=== PATIENT | female | born 1975 | race Caucasian/White ===

== ENCOUNTER 2021-05-03 17:25 | Emergency (ER) | payer OTHER ==
[2021-05-03 18:03] VITALS: BP 126/78; PULSE 63; TEMP 97.8; BMI 21.6
[2021-05-03] MEDS ORDERED: IBUPROFEN 600 MG TABLET (FP) PO ONE ×2 (18:29→18:40)
[2021-05-03] MEDS ORDERED: LIDOCAINE 5% TOPICAL PATCH TP ONE (18:29)
[2021-05-03] MEDS ORDERED: LIDOCAINE 5% TOPICAL PATCH ONE (18:40)
[2021-05-03] MEDS ORDERED: LIDOCAINE PATCH REMOVAL MC SCH (22:00)
== END 2021-05-03 22:01 | disposition home or self-care (01) ==
LOC: FER 17:25
DX: M54.2 Cervicalgia (principal)
CPT/HCPCS: 99283-25

== ENCOUNTER 2021-05-09 21:18 | Emergency (ER) | payer OTHER ==
[2021-05-09 21:28] VITALS: BP 122/85; PULSE 82; BMI 21.6
[2021-05-09] MEDS ORDERED: MECLIZINE HCL 25 MG TABLET (FP) PO ONE (21:39)
[2021-05-09] MEDS ORDERED: ONDANSETRON *ODT* 4 MG TABLET SL ONE (21:40)
[2021-05-09] MEDS ORDERED: CYCLOBENZAPRINE HCL 5 MG TABLET PO STA (21:40)
[2021-05-09] MEDS ORDERED: MECLIZINE HCL 25 MG TABLET (FP) ONE (21:44)
[2021-05-09] MEDS ORDERED: CYCLOBENZAPRINE HCL 10 MG TABLET (FP) ONE (21:45)
[2021-05-09] MEDS ORDERED: ONDANSETRON *ODT* 4 MG TABLET ONE (21:45)
== END 2021-05-09 22:00 | disposition home or self-care (01) ==
LOC: FER 21:18 → SUPCPDRO 21:18 → FER 22:00
DX: R42 Dizziness and giddiness (principal); M54.2 Cervicalgia; F07.81 Postconcussional syndrome
CPT/HCPCS: 99283-25; Q0162

== ENCOUNTER 2021-09-16 19:29 | Emergency (ER) | payer OTHER ==
[2021-09-16] MEDS ORDERED: KETOROLAC TROMETHAMINE 30 MG/1 ML VIAL IM ONE ×2 (19:37→21:32)
[2021-09-16] MEDS ORDERED: KETOROLAC TROMETHAMINE 30 MG/1 ML VIAL ONE ×2 (19:37→21:33)
[2021-09-16] MEDS ORDERED: ACETAMINOPHEN 500 MG TABLET (FP) PO ONE (19:40)
[2021-09-16] MEDS ORDERED: ACETAMINOPHEN 500 MG TABLET (FP) ONE (19:41)
[2021-09-16 19:51] VITALS: BP 117/77; PULSE 76; TEMP 97.7; BMI 20.5
== END 2021-09-16 22:46 | disposition home or self-care (01) ==
LOC: FER 19:29
PROC: 3E023GC Introduction of Other Therapeutic Substance into Muscle, Percutaneous Approach (ICD-10-PCS; principal; 2021-09-16)
DX: F07.81 Postconcussional syndrome (principal); G44.309 Post-traumatic headache, unspecified, not intractable; T76.11XA Adult physical abuse, suspected, initial encounter
CPT/HCPCS: 70450-TC; 72070-TC-FY; 96372; 99284-25

== ENCOUNTER 2021-09-27 10:54 | Emergency (ER) | payer OTHER ==
[2021-09-27 11:04] VITALS: BP 121/78; PULSE 81; TEMP 97.8; BMI 20.5
[2021-09-27] MEDS ORDERED: IBUPROFEN 400 MG TABLET (FP) PO ONE ×2 (12:11→12:20)
[2021-09-27] MEDS ORDERED: ACETAMINOPHEN 325 MG TABLET (FP) PO ONE (12:11)
[2021-09-27] MEDS ORDERED: ACETAMINOPHEN 325 MG TABLET (FP) ONE (12:20)
== END 2021-09-27 12:37 | disposition home or self-care (01) ==
LOC: FER 10:54
DX: N94.6 Dysmenorrhea, unspecified (principal)
CPT/HCPCS: 99283-25

== ENCOUNTER 2021-10-05 11:12 | Emergency (ER) | payer OTHER ==
[2021-10-05] MEDS ORDERED: CYCLOBENZAPRINE HCL 10 MG TABLET (FP) PO ONE (11:19)
[2021-10-05 11:20] VITALS: BP 121/78; PULSE 67; TEMP 97.6; BMI 20.5
[2021-10-05] MEDS ORDERED: CYCLOBENZAPRINE HCL 5 MG TABLET ONE (11:22)
== END 2021-10-05 11:46 | disposition home or self-care (01) ==
LOC: FER 11:12
DX: R23.3 Spontaneous ecchymoses (principal)
CPT/HCPCS: 99283-25

== ENCOUNTER 2022-02-24 00:09 | Emergency (ER) | payer OTHER ==
[2022-02-24] MEDS ORDERED: ACETAMINOPHEN 500 MG TABLET (FP) ONE (00:15)
[2022-02-24] MEDS ORDERED: ACETAMINOPHEN 500 MG TABLET (FP) PO ONE (00:15)
[2022-02-24 00:19] VITALS: BP 109/74; PULSE 72; RESP 17; TEMP 97.6; BMI 20.5
[2022-02-24] MEDS ORDERED: MAGNESIUM CITRATE 300 ML BOTTLE PO ONE (00:44)
[2022-02-24] MEDS ORDERED: METHOCARBAMOL 500 MG TABLET PO ONE (00:47)
== END 2022-02-24 00:35 | disposition home or self-care (01) ==
LOC: FER 00:09
DX: R51.9 Headache, unspecified (principal); M54.2 Cervicalgia; M54.6 Pain in thoracic spine
CPT/HCPCS: 99283-25

== ENCOUNTER 2022-03-02 20:30 | Emergency (ER) | payer OTHER ==
[2022-03-02 20:40] VITALS: BP 112/69; PULSE 83; RESP 18; TEMP 97.8; BMI 20.5
[2022-03-02] MEDS ORDERED: MECLIZINE HCL 25 MG TABLET (FP) PO ONE (20:40)
[2022-03-02] MEDS ORDERED: SODIUM CHLORIDE 0.9% 500 ML INFUS.BAG IV ONE (20:40)
[2022-03-02] MEDS ORDERED: MECLIZINE HCL 25 MG TABLET (FP) ONE (21:28)
[2022-03-02 21:39] LABS: HEMATOCRIT 36.6 % (32.4-45.2); HEMOGLOBIN 12.4 G/dL (10.7-15.3); MCH 30.3 pg (25.7-33.7); MCHC 33.7 g/dl (32.0-36.0); MEAN CELL VOLUME 89.7 fl (80-96); MEAN PLT VOLUME 7.6 fl (7.5-11.1); RBC 4.08 10^6/uL (3.60-5.2); RDW 14.6 % (11.6-15.6); WHITE BLOOD COUNT 6.7 10^3/uL (4.0-10.8)
[2022-03-02 21:50] LABS: PLATELET ESTIMATE ADEQUATE
[2022-03-02 21:54] LABS: ALBUMIN 3.7 g/dl (3.4-5.0); BILIRUBIN,TOTAL 0.3 mg/dl (0.2-1); CALCIUM 8.8 mg/dl (8.5-10); CREATININE 0.7 mg/dl (0.55-1.3)
== END 2022-03-02 23:30 | disposition home or self-care (01) ==
LOC: FER 20:30
DX: R00.2 Palpitations (principal)
CPT/HCPCS: 36415; 71046-TC-FY; 80053; 84484; 85027; 93005; 99285-25

== ENCOUNTER 2022-03-09 20:55 | Emergency (ER) | payer OTHER ==
[2022-03-09 21:15] VITALS: BP 118/68; PULSE 70; RESP 16; TEMP 98.4; BMI 22.3
[2022-03-09] MEDS ORDERED: ACETAMINOPHEN 500 MG TABLET (FP) PO ONE (21:30)
[2022-03-09] MEDS ORDERED: ACETAMINOPHEN 500 MG TABLET (FP) ONE (21:32)
== END 2022-03-09 23:00 | disposition home or self-care (01) ==
LOC: FER 20:55
DX: M54.2 Cervicalgia (principal)
CPT/HCPCS: 99283-25

== ENCOUNTER 2022-03-30 22:20 | Emergency (ER) | payer OTHER ==
[2022-03-30] MEDS ORDERED: ACETAMINOPHEN 500 MG TABLET (FP) PO ONE (22:44)
[2022-03-30 23:16] VITALS: BP 125/70; PULSE 78; RESP 18; TEMP 98; BMI 24.4
== END 2022-03-30 23:37 | disposition home or self-care (01) ==
LOC: FER 22:20
DX: S29.012A Strain of muscle and tendon of back wall of thorax, initial encounter (principal); X50.0XXA Overexertion from strenuous movement or load, initial encounter
CPT/HCPCS: 99283-25

== ENCOUNTER 2022-04-08 21:06 | Emergency (ER) | payer OTHER ==
[2022-04-08] MEDS ORDERED: ACETAMINOPHEN 500 MG TABLET (FP) PO ONE (21:30)
[2022-04-08] MEDS ORDERED: ACETAMINOPHEN 325 MG TABLET (FP) ONE (21:31)
[2022-04-08 21:52] VITALS: BP 121/84; PULSE 76; RESP 18; TEMP 97.8; BMI 23.3
== END 2022-04-08 23:00 | disposition home or self-care (01) ==
LOC: FER 21:06
DX: M54.2 Cervicalgia (principal); M54.50 Low back pain, unspecified
CPT/HCPCS: 99283-25

== ENCOUNTER 2022-11-17 01:30 | Emergency (ER) | payer OTHER ==
[2022-11-17 01:50] VITALS: BP 114/82; BMI 49.1
[2022-11-17] MEDS ORDERED: CYCLOBENZAPRINE HCL 5 MG TABLET PO STA (02:01)
[2022-11-17] MEDS ORDERED: ACETAMINOPHEN 500 MG TABLET (FP) PO ONE (02:02)
[2022-11-17] MEDS ORDERED: CYCLOBENZAPRINE HCL 5 MG TABLET ONE (02:11)
[2022-11-17] MEDS ORDERED: ACETAMINOPHEN 500 MG TABLET (FP) ONE (02:11)
== END 2022-11-17 02:20 | disposition home or self-care (01) ==
LOC: FER 01:30
DX: M54.2 Cervicalgia (principal); M54.9 Dorsalgia, unspecified; M25.519 Pain in unspecified shoulder
CPT/HCPCS: 99283-25

== ENCOUNTER 2022-11-18 03:40 | Emergency (ER) | payer OTHER ==
[2022-11-18 03:50] VITALS: BP 119/77; PULSE 80; RESP 16; TEMP 97.8; BMI 22.3
[2022-11-18] MEDS ORDERED: ACETAMINOPHEN 500 MG TABLET (FP) PO ONE (04:07)
[2022-11-18] MEDS ORDERED: ACETAMINOPHEN 500 MG TABLET (FP) ONE (04:08)
== END 2022-11-18 04:19 | disposition home or self-care (01) ==
LOC: FER 03:40
DX: M54.50 Low back pain, unspecified (principal); M25.562 Pain in left knee; M54.2 Cervicalgia; S80.212A Abrasion, left knee, initial encounter; Y04.8XXA Assault by other bodily force, initial encounter; Y92.480 Sidewalk as the place of occurrence of the external cause
CPT/HCPCS: 99282-25

== ENCOUNTER 2022-11-18 21:52 | Emergency (ER) | payer OTHER ==
[2022-11-18] MEDS ORDERED: HYDROmorphone HCl 2 MG/ML VIAL IVPUSH ONE (22:03)
[2022-11-18] MEDS ORDERED: CYCLOBENZAPRINE HCL 5 MG TABLET PO STA (22:26)
[2022-11-18 22:27] VITALS: BP 118/81; PULSE 88; RESP 18; TEMP 97.9; BMI 22.3
[2022-11-18] MEDS ORDERED: ACETAMINOPHEN 500 MG TABLET (FP) PO ONE (22:27)
[2022-11-18] MEDS ORDERED: CYCLOBENZAPRINE HCL 5 MG TABLET ONE (22:29)
[2022-11-18] MEDS ORDERED: ACETAMINOPHEN 500 MG TABLET (FP) ONE (22:29)
== END 2022-11-19 00:02 | disposition home or self-care (01) ==
LOC: FER 21:52
DX: M54.9 Dorsalgia, unspecified (principal); M54.2 Cervicalgia; G89.29 Other chronic pain
CPT/HCPCS: 99283-25

== ENCOUNTER 2022-11-20 01:10 | Emergency (ER) | payer OTHER ==
[2022-11-20 01:16] VITALS: BP 119/74; PULSE 88; RESP 16; TEMP 98.5; BMI 19.3
== END 2022-11-20 01:32 | disposition home or self-care (01) ==
LOC: FER 01:10
DX: M54.50 Low back pain, unspecified (principal); M54.2 Cervicalgia; G89.29 Other chronic pain
CPT/HCPCS: 99282-25

== ENCOUNTER 2022-11-20 22:18 | Emergency (ER) | payer OTHER ==
[2022-11-20 22:28] VITALS: BP 118/63; PULSE 102; RESP 18; BMI 22.3
[2022-11-20] MEDS ORDERED: ACETAMINOPHEN 500 MG TABLET (FP) PO ONE (22:59)
[2022-11-20] MEDS ORDERED: CYCLOBENZAPRINE HCL 10 MG TABLET (FP) PO ONE (22:59)
[2022-11-20] MEDS ORDERED: CYCLOBENZAPRINE HCL 5 MG TABLET ONE (23:13)
[2022-11-20] MEDS ORDERED: ACETAMINOPHEN 500 MG TABLET (FP) ONE (23:15)
[2022-11-20 23:33] VITALS: TEMP 98.1
== END 2022-11-20 23:36 | disposition home or self-care (01) ==
LOC: JER 22:18
DX: M54.9 Dorsalgia, unspecified (principal); M54.2 Cervicalgia; M25.562 Pain in left knee; G89.29 Other chronic pain; S80.212A Abrasion, left knee, initial encounter; X58.XXXA Exposure to other specified factors, initial encounter
CPT/HCPCS: 99283-25

== ENCOUNTER 2022-11-21 03:57 | Emergency (ER) | payer OTHER ==
[2022-11-21 04:09] VITALS: BP 133/62; PULSE 79; RESP 18; TEMP 97.6; BMI 22.3
[2022-11-21] MEDS ORDERED: LIDOCAINE 5% TOPICAL PATCH TP ONE (04:29)
[2022-11-21] MEDS ORDERED: LIDOCAINE 5% TOPICAL PATCH ONE (04:31)
[2022-11-21] MEDS ORDERED: LIDOCAINE PATCH REMOVAL MC ONE (17:00)
== END 2022-11-21 05:10 | disposition home or self-care (01) ==
LOC: JER 03:57
DX: M54.2 Cervicalgia (principal); N93.9 Abnormal uterine and vaginal bleeding, unspecified; M54.9 Dorsalgia, unspecified; N92.0 Excessive and frequent menstruation with regular cycle
CPT/HCPCS: 99283-25

== ENCOUNTER 2022-11-23 03:41 | Emergency (ER) | payer OTHER ==
[2022-11-23 03:54] VITALS: BP 143/86; PULSE 86; RESP 18; TEMP 98; BMI 22.3
[2022-11-23] MEDS ORDERED: ACETAMINOPHEN 325 MG TABLET (FP) ONE (03:55)
[2022-11-23] MEDS ORDERED: CYCLOBENZAPRINE HCL 5 MG TABLET ONE (03:55)
[2022-11-23] MEDS ORDERED: CYCLOBENZAPRINE HCL 10 MG TABLET (FP) PO ONE (04:16)
[2022-11-23] MEDS ORDERED: ACETAMINOPHEN 500 MG TABLET (FP) PO ONE (04:17)
[2022-11-23] MEDS ORDERED: CYCLOBENZAPRINE HCL 5 MG TABLET PO STA (04:18)
[2022-11-23] MEDS ORDERED: ACETAMINOPHEN 325 MG TABLET (FP) PO ONE (04:19)
== END 2022-11-23 05:31 | disposition home or self-care (01) ==
LOC: FER 03:41
DX: M54.2 Cervicalgia (principal); M54.9 Dorsalgia, unspecified
CPT/HCPCS: 99283-25

== ENCOUNTER 2022-12-01 21:52 | Emergency (ER) | payer OTHER ==
[2022-12-01 21:59] VITALS: BMI 23.1
[2022-12-01 22:04] VITALS: BP 117/80; PULSE 85; RESP 16; TEMP 97.8
[2022-12-01] MEDS ORDERED: ACETAMINOPHEN 325 MG TABLET (FP) PO ONE (22:45)
[2022-12-01] MEDS ORDERED: ACETAMINOPHEN 325 MG TABLET (FP) ONE (22:46)
== END 2022-12-01 22:55 | disposition home or self-care (01) ==
LOC: FER 21:52
DX: M25.512 Pain in left shoulder (principal); M25.511 Pain in right shoulder; M54.2 Cervicalgia
CPT/HCPCS: 99283-25